=== PATIENT | male | born 1975 | race African-American/Black ===

== ENCOUNTER 2019-03-31 22:35 | Emergency (ER) | payer BC, OTHER ==
--- NOTE | 2019-03-31 23:30 | ER ---
Nurse's Notes [facility] Name: Giovanni Becker Age: 43 yrs Sex: Male : 1975 Arrival Date: 03/31/2019 Time: 22:38 Bed 30 Private MD: Diagnosis: Strain of right Achilles tendon Presentation: 03/31 22:54 Presenting complaint: Patient states: playing basket ball and felt a hit to the back of his calf. states he thinks the achilies tendon is ripped or something. states pain is not bad, but he cannot move his foot, and has sharp increase in pain with movement. Transition of care: patient was not received from another setting of care. Onset of symptoms was March 31, 2019 at 21:30. Risk Assessment: Do you want to hurt yourself or someone else? Patient reports no desire to harm self or others. Initial Sepsis Screen: Does the patient meet any 2 criteria? No. Patient's initial sepsis screen is negative. Does the patient have a suspected source of infection? No. Patient's initial sepsis screen is negative. Care prior to arrival: None. 22:54 Method Of Arrival: Wheelchair 22:54 Acuity: KENNEDY 4 Triage Assessment: 22:56 General: Appears in no apparent distress. comfortable, Behavior is calm, cooperative, ch appropriate for age. Pain: Complains of pain in right Achilles Pain currently is 2 out of 10 on a pain scale. at worst was 8 out of 10 on a pain scale. Neuro: No deficits noted. Cardiovascular: No deficits noted. Respiratory: Airway is patent Respiratory effort is even, unlabored. GI: No signs and/or symptoms were reported involving the gastrointestinal system. : No signs and/or symptoms were reported regarding the genitourinary system. Derm: Skin is intact, Skin is dry, Skin is normal. Musculoskeletal: Capillary refill < 3 seconds, in bilateral fingers. toes. Range of motion: limited in right ankle Tenderness present in right Achilles and right calf Reports weakness in right foot. Injury Description: contusion. Historical: - Allergies: 22:56 No Known Allergies; ch - Home Meds: 22:56 Bystolic oral oral [Active]; losartan oral oral [Active]; ch - PMHx: 22:56 Hypertension; ch - PSHx: 22:56 R middle finger; ch - Immunization history:: Adult Immunizations up to date, Last tetanus immunization: up to date Flu vaccine is not up to date. It has been more than one year since last vaccine. - Social history:: Smoking status: Patient/guardian denies using tobacco, Patient/guardian denies using alcohol, street drugs. - Ebola Screening: : Patient negative for fever greater than or equal to 101.5 degrees Fahrenheit, and additional compatible Ebola Virus Disease symptoms Patient denies exposure to infectious person Patient denies travel to an Ebola-affected area in the 21 days before illness onset No symptoms or risks identified at this time. Screenin:59 Abuse screen: Denies threats or abuse. Denies injuries from another. Nutritional ch screening: No deficits noted. Tuberculosis screening: No symptoms or risk factors identified. Fall Risk None identified. Assessment: 22:59 Reassessment: Patient appears in no apparent distress at this time. No changes from previously documented assessment. Patient and/or family updated on plan of care and expected duration. Pain level reassessed. Patient is alert, oriented x 3, equal unlabored respirations, skin warm/dry/pink. 23:40 Reassessment: Patient appears in no apparent distress at this time. Patient and/or family updated on plan of care and expected duration. Pain level reassessed. Patient is alert, oriented x 3, equal unlabored respirations, skin warm/dry/pink. Patient states feeling better. Patient states symptoms have improved. 23:43 Musculoskeletal: Capillary refill < 3 seconds, in bilateral fingers. toes. Swelling ch absent. Vital Signs: 22:56 BP 157 / 101; Pulse 57; Resp 14; Temp 98.3; Pulse Ox 99% on R/A; Weight 99.79 kg; ch Height 5 ft. 8 in. (172.72 cm); Pain 2/10; 22:56 Body Mass Index 33.45 (99.79 kg, 172.72 cm) ED Course: 22:38 Patient arrived in ED. cf2 22:53 Lakia Katz, SOY is Primary Nurse. ch 22:53 Brenda Almonte F[facility]-C [facility]. kb 22:53 Eron Lyons MD is Attending Physician. kb 22:55 Triage completed. 22:56 Arm band placed on left wrist. Patient placed in an exam room, on a stretcher, on pulse oximetry. 22:59 No apparent distress. Resting quietly. 22:59 Patient has correct armband on for positive identification. Bed in low position. Call light in reach. Side rails up X 1. Adult w/ patient. Pulse ox on. NIBP on. Warm blanket given. Ice pack to injury. Verbal reassurance given. 22:59 No provider procedures requiring assistance completed. Patient did not have IV access ch during this emergency room visit. 23:20 Crutch training done. Orthoglass splint: Posterior short lleg splint applied on right leg. 23:24 Ankle Right 3 View XRAY In Process Unspecified. EDMS 23:48 Primary Nurse role handed off by Lakia Katz, SOY bennett Administered Medications: No medications were administered Outcome: 23:29 Discharge ordered by . donald 23:40 Discharged to home via wheelchair, with family. 23:40 Condition: improved 23:40 Discharge instructions given to patient, family, Instructed on discharge instructions, follow up and referral plans. no drinking with medication, no driving heavy equipment, medication usage, crutch walking, Demonstrated understanding of instructions, follow-up care, medications, crutch walking, splint care, Prescriptions given X 1. 23:44 Patient left the ED. bb 23:48 Patient left the ED. donald Signatures: Dispatcher [employer] EDMS Brenda Almonte, GARRY-Sharon COYNEP-Lakia Vaughan, RN Lina Cortes ch, RN RN bb Frazier, Celesta cf2
--- NOTE | 2019-03-31 23:30 | EDPHYS ---
Physician Documentation [facility] Name: Giovanni Becker Age: 43 yrs Sex: Male : 1975 Arrival Date: 03/31/2019 Time: 22:38 Bed 30 Private MD: ED Physician Eron Lyons HPI: 03/31 23:09 This 43 yrs old Black Male presents to ER via Wheelchair with complaints of Foot Injury.kb 23:09 The patient presents with an injury, pain. The complaints affect the right Achilles. kb Context: The problem was sustained at a sports field or court, resulted from playing sports, basketball, the patient can partially bear weight, must have assistance. Onset: The symptoms/episode began/occurred just prior to arrival. Modifying factors: The symptoms are alleviated by nothing. the symptoms are aggravated by trying to pick foot off the ground. Associated signs and symptoms: The patient has no apparent associated signs or symptoms. Treatment prior to arrival includes: no previous treatment. Severity of symptoms: At their worst the symptoms were moderate, in the emergency department the symptoms are unchanged. The patient has not experienced similar symptoms in the past. The patient has not recently seen a physician. "I was playing basketball, dribbling down the court, and felt like I got kicked in the calf. I just knew it was my achilles right then.". Historical: - Allergies: 22:56 No Known Allergies; ch - Home Meds: 22:56 Bystolic oral oral [Active]; losartan oral oral [Active]; ch - PMHx: 22:56 Hypertension; ch - PSHx: 22:56 R middle finger; ch - Immunization history:: Adult Immunizations up to date, Last tetanus immunization: up to date Flu vaccine is not up to date. It has been more than one year since last vaccine. - Social history:: Smoking status: Patient/guardian denies using tobacco, Patient/guardian denies using alcohol, street drugs. - Ebola Screening: : Patient negative for fever greater than or equal to 101.5 degrees Fahrenheit, and additional compatible Ebola Virus Disease symptoms Patient denies exposure to infectious person Patient denies travel to an Ebola-affected area in the 21 days before illness onset No symptoms or risks identified at this time. ROS: 23:07 Constitutional: Negative for fever, chills, and weight loss, ENT: Negative for injury, kb pain, and discharge, Neck: Negative for injury, pain, and swelling, Cardiovascular: Negative for chest pain, palpitations, and edema, Respiratory: Negative for shortness of breath, cough, wheezing, and pleuritic chest pain, Abdomen/GI: Negative for abdominal pain, nausea, vomiting, diarrhea, and constipation, Skin: Negative for injury, rash, and discoloration, Neuro: Negative for headache, weakness, numbness, tingling, and seizure. 23:07 MS/extremity: Positive for injury or acute deformity, pain. Exam: 23:09 Constitutional: This is a well developed, well nourished patient who is awake, alert, kb and in no acute distress. Head/Face: Normocephalic, atraumatic. Chest/axilla: Normal chest wall appearance and motion. Nontender with no deformity. No lesions are appreciated. Cardiovascular: Regular rate and rhythm with a normal S1 and S2. No gallops, murmurs, or rubs. Normal PMI, no JVD. No pulse deficits. Respiratory: Lungs have equal breath sounds bilaterally, clear to auscultation and percussion. No rales, rhonchi or wheezes noted. No increased work of breathing, no retractions or nasal flaring. Abdomen/GI: Soft, non-tender, with normal bowel sounds. No distension or tympany. No guarding or rebound. No evidence of tenderness throughout. Skin: Warm, dry with normal turgor. Normal color with no rashes, no lesions, and no evidence of cellulitis. Neuro: Awake and alert, GCS 15, oriented to person, place, time, and situation. Cranial nerves II-XII grossly intact. Motor strength 5/5 in all extremities. Sensory grossly intact. Cerebellar exam normal. Normal gait. 23:09 Musculoskeletal/extremity: Extremities: grossly normal except: noted in the right Achilles: pain, ROM: limited active range of motion due to pain, Circulation is intact in all extremities. Sensation intact. Weight bearing: can bear weight with assistance only. Vital Signs: 22:56 BP 157 / 101; Pulse 57; Resp 14; Temp 98.3; Pulse Ox 99% on R/A; Weight 99.79 kg; ch Height 5 ft. 8 in. (172.72 cm); Pain 2/10; 22:56 Body Mass Index 33.45 (99.79 kg, 172.72 cm) MDM: 22:54 Patient medically screened. kb 23:07 Data reviewed: vital signs, nurses notes. Data interpreted: Pulse oximetry: on room air kb is 99 %. Interpretation: normal. Counseling: I had a detailed discussion with the patient and/or guardian regarding: the historical points, exam findings, and any diagnostic results supporting the discharge/admit diagnosis, radiology results, the need for outpatient follow up, a orthopedic surgeon, to return to the emergency department if symptoms worsen or persist or if there are any questions or concerns that arise at home. 03/31 22:59 Order name: Ankle Right 3 View XRAY kb Administered Medications: No medications were administered Disposition: 04/01 07:02 Co-signature as Attending Physician, Eron Lyons MD Available for consultation at ps1 all times . Disposition: 03/31/19 23:29 Discharged to Home. Impression: Strain of right Achilles tendon. - Condition is Stable. - Discharge Instructions: Partial (Incomplete) Achilles Tendon Rupture. - Prescriptions for Tramadol 50 mg Oral Tablet - take 1 tablet by ORAL route every 8 hours as needed; 12 tablet. - Medication Reconciliation Form, Thank You Letter, Antibiotic Education, Prescription Opioid Use, Work release form form. - Follow up: Private Physician; When: 2 - 3 days; Reason: Recheck today's complaints, Continuance of care, Re-evaluation by your physician. Follow up: Emergency Department; When: As needed; Reason: Worsening of condition. Signatures: Dispatcher [employer] [facility] Brenda Almonte, GARRY-Sharon COYNEP-Lakia Vaughan RN RN Lina Vásquez RN RN Eorn Saleem MD MD ps1 Corrections: (The following items were deleted from the chart) 03/31 23:44 23:29 03/31/2019 23:29 Discharged to Home. Impression: Strain of right Achilles tendon. bb Condition is Stable. Forms are Medication Reconciliation Form, Thank You Letter, Antibiotic Education, Prescription Opioid Use. Follow up: Private Physician; When: 2 - 3 days; Reason: Recheck today's complaints, Continuance of care, Re-evaluation by your physician. Follow up: Emergency Department; When: As needed; Reason: Worsening of condition. kb 23:48 23:44 03/31/2019 23:29 Discharged to Home. Impression: Strain of right Achilles tendon. kb Condition is Stable. Discharge Instructions: Partial (Incomplete) Achilles Tendon Rupture. Prescriptions for Tramadol 50 mg Oral Tablet - take 1 tablet by ORAL route every 8 hours as needed; 12 tablet. and Forms are Medication Reconciliation Form, Thank You Letter, Antibiotic Education, Prescription Opioid Use, Work release form. Follow up: Private Physician; When: 2 - 3 days; Reason: Recheck today's complaints, Continuance of care, Re-evaluation by your physician. Follow up: Emergency Department; When: As needed; Reason: Worsening of condition. bb
[2019-04-01 01:17] VITALS: BP 157/101; TEMP 98.3; O2SAT 99
--- NOTE | 2019-04-01 06:38 | RAD REPORT ---
EXAM DESCRIPTION: RAD - Ankle Right 3 View - 03/31/2019 11:23 pm CLINICAL HISTORY: PAIN COMPARISON: No comparisons FINDINGS: No acute fracture or dislocation seen. Small calcaneal spurs noted.
== END 2019-03-31 23:48 | disposition home or self-care (01) ==
LOC: ER 22:35
DX: S86.011A Strain of right Achilles tendon, initial encounter (principal); Y93.67 Activity, basketball; Y92.310 Basketball court as the place of occurrence of the external cause; I10 Essential (primary) hypertension
CPT/HCPCS: 99284